=== PATIENT | male | born 1995 | race Two or more races ===

== ENCOUNTER → 2019-06-17 | Outpatient (CLI) | payer BC, OTHER ==
[2019-06-17 15:46] LABS: APPEARANCE,URINE CLEAR; BILIRUBIN,URINE NEGATIVE (NEGATIVE); COLOR,URINE STRAW; GLUCOSE, URINE NEGATIVE (NEGATIVE); KETONES,URINE NEGATIVE (NEGATIVE); LEUKOCYTE ESTERASE,URINE NEGATIVE (NEGATIVE); NITRITE,URINE NEGATIVE (NEGATIVE); PROTEIN,URINE NEGATIVE (NEGATIVE); URINE SPECIFIC GRAVITY 1.005; UROBILINOGEN,URINE NEGATIVE mg/dL (<2.0)
[2019-06-17 17:11] LABS: CHLAM PCR NOT DETECTED (NOT DETECT)
== END ==
LOC: LAB 15:28
PROVIDERS: ATTEND Nurse Practitioner Family
DX: R30.0 Dysuria (principal)
CPT/HCPCS: 81001; 87070; 87086; 87088; 87491; 87591

== ENCOUNTER → 2019-06-19 | Outpatient (CLI) | payer BC, OTHER ==
[2019-06-19 11:36] LABS: ABSOLUTE LYMPHOCYTES (AUTO) 1.4 10^3/uL (0.5-4.7); ABSOLUTE MONOCYTES (AUTO) 1.5 10^3/uL (0.1-1.4); BASOPHILS % (AUTO) 0.3 % (0-2); EOSINOPHILS % (AUTO) 0.1 % (0-6); HEMATOCRIT 43.9 % (37.9-51.0); HEMOGLOBIN 14.7 g/dL (13.5-17.0); LYMPHOCYTES % (AUTO) 13.6 % (13-45); MEAN CORPUSCULAR HEMOGLOBIN 26.9 pg (27.0-33.4); MEAN CORPUSCULAR HGB CONC 33.4 g/dL (32.0-36.0); MEAN CORPUSCULAR VOLUME 81 fl (80-97); MONOCYTES % (AUTO) 15.3 % (3-13); PLATELET COUNT 193 10^3/uL (150-450); RED BLOOD COUNT 5.45 10^6/uL (4.35-5.55); RED CELL DISTRIBUTION WIDTH 13.2 % (11.5-14.0); SEGMENTED NEUTROPHILS % (AUTO) 70.7 % (42-78); TOTAL CELLS COUNTED % (AUTO) 100 %; WHITE BLOOD COUNT 9.9 10^3/uL (4.0-10.5)
[2019-06-19 11:58] LABS: ANION GAP 9 (5-19); BLOOD UREA NITROGEN 18 mg/dL (7-20); CALCIUM 9.4 mg/dL (8.4-10.2); CARBON DIOXIDE 30 mmol/L (22-30); CHLORIDE 97 mmol/L (98-107); GLUCOSE 106 mg/dL (75-110); POTASSIUM 4.4 mmol/L (3.6-5.0)
== END ==
LOC: LAB 11:17
PROVIDERS: ATTEND Nurse Practitioner Family
DX: J02.9 Acute pharyngitis, unspecified (principal)
CPT/HCPCS: 36415; 80048; 85025; 86308

== ENCOUNTER → 2019-06-21 | Outpatient (CLI) | payer BC, OTHER ==
[2019-06-21 11:53] LABS: ANION GAP 11 (5-19); BLOOD UREA NITROGEN 14 mg/dL (7-20); CALCIUM 9.4 mg/dL (8.4-10.2); CARBON DIOXIDE 30 mmol/L (22-30); CHLORIDE 96 mmol/L (98-107); GLUCOSE 90 mg/dL (75-110); POTASSIUM 4.5 mmol/L (3.6-5.0)
== END ==
LOC: LAB 11:03
PROVIDERS: ATTEND Nurse Practitioner Acute Care
DX: R11.0 Nausea (principal)
CPT/HCPCS: 36415; 80048

== ENCOUNTER → 2019-07-13 | Outpatient (CLI) | payer BC, OTHER ==
[2019-07-13 13:08] LABS: CHLAM PCR NOT DETECTED (NOT DETECT)
== END ==
LOC: LAB 11:32
PROVIDERS: ATTEND Nurse Practitioner Family
DX: R30.0 Dysuria (principal); R36.9 Urethral discharge, unspecified
CPT/HCPCS: 87086; 87088; 87491; 87591

== ENCOUNTER 2019-08-13 21:21 | Emergency (ER) | payer BC, OTHER ==
[2019-08-13 22:01] VITALS: BP 133/62
[2019-08-13] MEDS ORDERED: CEFTRIAXONE INJ 250 MG VIAL IM ONE (22:10)
[2019-08-13] MEDS ORDERED: LIDOCAINE 1% INJ-PF (10 MG/ML) 30 ML SDV INJ ONE (22:10)
[2019-08-13] MEDS ORDERED: AZITHROMYCIN 250 MG TABLET PO ONE (22:10)
--- NOTE | 2019-08-13 22:13 | ER Document Report ---
HPI - HPI Time Seen by Provider: 08/13/19 22:09 Pain Level: 2 Context: Patient is a 23-year-old male presents emergency department with a chief complaint of penile discharge and dysuria. Back in June he was treated for gonorrhea and chlamydia. He tested positive for gonorrhea. Patient states that he now has symptoms again. Patient states that he continued to have sex with different partners. Denies any abdominal pain. - CONSTITUTIONAL Constitutional: DENIES: Fever, Chills - EENT EENT: DENIES: Sore Throat, Ear Pain, Nasal Drainage-Clear - NEURO Neurology: DENIES: Headache, Weakness, Vision blurred - CARDIOVASCULAR Cardiovascular: DENIES: Chest pain - RESPIRATORY Respiratory: DENIES: Trouble Breathing, Coughing - GASTROINTESTINAL Gastrointestinal: DENIES: Abdominal Pain, Nausea, Patient vomiting, Diarrhea, Constipation - URINARY Urinary: REPORTS: Dysuria. DENIES: Urgency, Frequency Notes: Penile discharge - MUSCULOSKELETAL Musculoskeletal: DENIES: Extremity pain - DERM Skin Color: Normal Skin Problems: None Past Medical History - General Information source: Patient - Social History Smoking Status: Never Smoker Family History: Reviewed & Not Pertinent Patient has suicidal ideation: No Patient has homicidal ideation: No Vertical Provider Document - CONSTITUTIONAL Agree With Documented VS: Yes Exam Limitations: No Limitations General Appearance: No Apparent Distress - INFECTION CONTROL TRAVEL OUTSIDE OF THE [place] IN LAST 30 DAYS: No - HEENT HEENT: Atraumatic, Normocephalic, PERRLA - NECK Neck: Normal Inspection - RESPIRATORY Respiratory: Breath Sounds Normal, No Respiratory Distress - CARDIOVASCULAR Cardiovascular: Regular Rate, Regular Rhythm Pulses: Normal: Radial - GI/ABDOMEN Gastrointestinal: Abdomen Soft, Abdomen Non-Tender - REPRODUCTIVE Notes: Reproductive exam deferred per patient. - MUSCULOSKELETAL/EXTREMETIES Musculoskeletal/Extremeties: FROM - NEURO Level of Consciousness: Awake, Alert, Appropriate Motor/Sensory: No Motor Deficit, No Sensory Deficit - DERM Integumentary: Warm, Dry, No Rash Course - Re-evaluation Re-evalutation: Patient has chosen to be empirically treated for gonorrhea and chlamydia. Urine for gonorrhea and chlamydia were sent. Patient will be empirically treated with Rocephin and azithromycin here in the emergency department. He will follow-up as needed. I gave him strict instructions not to have sex with anyone for the next week. I also told him to use condoms and make sure his partners get treated. He is in agreement with this plan. I have a very low suspicion for sepsis, pyelonephritis, or any life-threatening etiology at this time. Vital signs are stable. Follow-up precautions were given. Verbal discharge instructions were given to the patient. They verbalized understanding. They are stable for discharge. - Vital Signs Vital signs: Temp Pulse Resp BP Pulse Ox 98.6 F 67 18 133/62 H 97 08/13/19 21:57 08/13/19 21:57 08/13/19 21:57 08/13/19 21:57 08/13/19 21:57 Discharge - Discharge Clinical Impression: Dysuria, Penile discharge Condition: Stable Disposition: HOME, SELF-CARE Additional Instructions: You need to use protection every time you have sex. Failure to do so can result in transmission of infections or unintended . You have been treated for an sexually transmitted infection (STI) today. All of your partners should be tested and treated as they are also likely to be infected. Please return if you develop abdominal pain, fever, persistent vomiting, or any other symptoms that are concerning to you. Do not have sex for the next week to make sure you are symptoms have resolved. Referrals: GISEL LARA, J[facility]ON-[facility] [NO LOCAL MD] - Follow up in 1 week
[2019-08-14 00:11] LABS: CHLAM PCR NOT DETECTED (NOT DETECT)
== END 2019-08-13 22:25 | disposition home or self-care (01) ==
LOC: ER 21:21
DX: R36.9 Urethral discharge, unspecified (principal); R30.0 Dysuria; Z20.2 Contact with and (suspected) exposure to infections with a predominantly sexual mode of transmission
CPT/HCPCS: 99283; 96372; 87491; 87591; J3490; J0696